=== PATIENT | female | born 1965 | race African-American/Black ===

== ENCOUNTER 2017-02-07 07:41 | Emergency (ER) | payer OTHER ==
[~2017-02-07] VITALS: Ht 157.5 cm; Wt 79.4 kg
--- NOTE | ~2017-02-07 | EKG ---
[place] [address] [address] [place] [address] ELECTROCARDIOGRAM REPORT Name: CA TURNER Room #: [facility]P [facility]OD[facility]le#: [id number] Admission: 02/07/17 Attend Phys: Discharge: 02/07/17 Date of : 61 Report #: [id number] THIS REPORT FOR: //name// [facility] ED Test Date: 2017-02-07 Test Time: 08:51:46 Pat Name: CA TURNER Department: Room: Gender: F Him Assistant: MILLY BLAND : 1965 Requested By: Chana Ram Order Number: [id number] MD: Best Morgan Measurements Intervals [place] Rate: 120 P: 73 MS: 119 QRS: 21 QRSD: 66 T: 177 QT: 304 QTc: 430 Interpretive Statements Sinus tachycardia Nonspecific ST and T-wave abnormality No previous ECG available for comparison Electronically Signed On 02-08-2017 8:37:04 CDT by Best Morgan [email or web address] <ELECTRONICALLY SIGNED> By: Best Morgan MD, [facility] 02/08/17 0837 [id number] Best Morgan MD, FACC /EPI
[2017-02-07] MEDS ORDERED: ALEVE220 MG PO (07:54)
[2017-02-07] MEDS ORDERED: LISINOPRIL20 MG PO (07:55)
[2017-02-07] MEDS ORDERED: LEVEMIR100 UNIT/1 SUBQ (07:58)
[2017-02-07] MEDS ORDERED: NOVOLOG100 UNIT/1 SUBQ (07:58)
[2017-02-07 09:37] LABS: ANION GAP 12 mmol/L (7-16); BUN 17 mg/dL (7-18); CHLORIDE 102 mmol/L (98-107); CO2 23 mmol/L (21-32); CREATININE 0.9 mg/dL (0.6-1.0); GLUCOSE 147 mg/dL (74-106); POTASSIUM 3.4 mmol/L (3.5-5.1); SODIUM 137 mmol/L (136-145)
[2017-02-07 09:43] LABS: ABSOLUTE NEUTROPHILS 4.1 thou/uL (1.4-8.2); BASOPHILS 0.7 % (0.0-2.0); EOSINOPHILS 0.7 % (0.0-3.0); HEMOGLOBIN 12.2 gm/dL (12.0-15.0); LYMPHOCYTES 14.8 % (24.0-44.0); MANUAL DIFF NO; MCH 28.1 pg (26.0-34.0); MCHC 33.1 g/dL (28.0-37.0); MCV 84.7 fL (80.0-100.0); MONOCYTES 8.9 % (1.0-8.0); PLATELET COUNT 223 thou/uL (150-400); POLYS 74.9 % (36.0-66.0); RBC 4.36 mil/uL (4.20-5.00); RDW 15.1 % (10.5-14.5); WBC 5.5 thou/uL (4.0-11.0)
[2017-02-07 09:46] LABS: TROPONIN-I < 0.04 ng/mL (<0.04-0.07)
[2017-02-07] MEDS ORDERED: NAPROSYN500 MG PO (12:05)
[2017-02-07 12:32] VITALS: BP 172/76
== END 2017-02-07 12:34 | disposition home or self-care (01) ==
LOC: ER 07:41
PROVIDERS: Emergency Medicine
DX: M25.511 Pain in right shoulder (principal); E11.9 Type 2 diabetes mellitus without complications; I10 Essential (primary) hypertension

== ENCOUNTER 2019-10-12 07:45 | Emergency (ER) | payer OTHER ==
[~2019-10-12] VITALS: Ht 157.5 cm; Wt 86.2 kg
[~2019-10-12 07:45] MED LIST: ALEVE220 MG PO; LEVEMIR100 UNIT/1 SUBQ; LISINOPRIL20 MG PO; NAPROSYN500 MG PO; NOVOLOG100 UNIT/1 SUBQ
[2019-10-12 09:29] VITALS: BP 180/88
== END 2019-10-12 09:30 | disposition home or self-care (01) ==
LOC: ER 07:45
DX: J06.9 Acute upper respiratory infection, unspecified (principal); I10 Essential (primary) hypertension; E11.9 Type 2 diabetes mellitus without complications; Z79.4 Long term (current) use of insulin